=== PATIENT | female | born 1955 | race Caucasian/White ===

== ENCOUNTER 2017-10-15 06:26 | Day surgery (SDC) | payer MEDICAID ==
[2017-10-12 10:21] LABS: ADD MAN DIFF? NO
[2017-10-12 10:27] LABS: WHITE BLOOD COUNT 6.6 10^3/ul (4.8-10.8)
[2017-10-12 10:27] LABS: BASOPHILS % 0.6 % (0.0-2.0); EOSINOPHILS % 0.3 % (0.0-7.0); HEMATOCRIT 37.1 % (37.0-47.0); HEMOGLOBIN 12.4 g/dl (12.0-16.0); LYMPHOCYTES # 2.1 10^3/ul (0.8-2.9); LYMPHOCYTES % 31.3 % (15.0-51.0); MEAN CORPUSCULAR HEMOGLOBIN 29.2 pg (29.0-33.0); MEAN CORPUSCULAR HGB CONC 33.4 g/dl (32.0-37.0); MEAN CORPUSCULAR VOLUME 87.5 fl (82.0-101.0); MEAN PLATELET VOLUME 10.3 fl (7.4-10.4); MONOCYTE # 0.5 10^3/ul (0.3-0.9); MONOCYTES % 7.8 % (0.0-11.0); NEUTROPHIL # 3.9 10^3/ul (1.6-7.5); NEUTROPHILS % 59.8 % (39.0-77.0); PLATELET COUNT 193 10^3/UL (140-415); RED BLOOD COUNT 4.24 10^6/ul (4.20-5.40); RED CELL DISTRIBUTION WIDTH 13.5 % (11.5-14.5)
[2017-10-12 10:40] LABS: ALANINE AMINOTRANSFERASE 24 IU/L (13-69); ALBUMIN 4.9 g/dl (3.3-4.9); ALKALINE PHOSPHATASE 62 IU/L (42-121); ANION GAP 20 (8-16); ASPARTATE AMINO TRANSFERASE 24 IU/L (15-46); BILIRUBIN,INDIRECT 0.7 mg/dl (0-1.1); BILIRUBIN,TOTAL 0.7 mg/dl (0.2-1.3); CARBON DIOXIDE 26 mmol/L (21-31); CHLORIDE 105 mmol/L (97-110); GLUCOSE 94 mg/dl (70-220); TOTAL PROTEIN 8.4 g/dl (6.1-8.1)
[2017-10-12 10:42] LABS: BLOOD UREA NITROGEN 16 mg/dl (7-20); CALCIUM 9.4 mg/dl (8.4-10.2); CREATININE 0.58 mg/dl (0.44-1.00); POTASSIUM 4.4 mmol/L (3.5-5.1); SODIUM 147 mmol/L (135-144)
[2017-10-12 10:47] LABS: INR 0.94; PROTIME 12.7 Sec (11.9-14.9)
[2017-10-12 10:48] LABS: PARTIAL THROMBOPLASTIN TIME 31.5 Sec (25.0-35.0)
[2017-10-15] MEDS ORDERED: CEFAZOLIN 1 GM/50 ML (PMX) 50 ML IVPB (11:30)
[2017-10-15] MEDS ORDERED: SOD CHLORIDE 0.9% 1,000 ML IV (11:30)
[2017-10-15] MEDS ORDERED: MIDAZOLAM 1 MG/ML 2 ML INJ (12:52)
[2017-10-15] MEDS ORDERED: GLYCOPYRROLATE 0.4 MG INJ (12:52)
[2017-10-15] MEDS ORDERED: PROPOFOL 20 ML (12:52)
[2017-10-15] MEDS ORDERED: CEFAZOLIN 1 GM INJ (12:52)
[2017-10-15] MEDS ORDERED: FENTAnyl 50 MCG/ML VIAL ×2 (12:52→14:17)
[2017-10-15] MEDS ORDERED: ROCURONIUM 50 MG INJ (12:52)
[2017-10-15] MEDS ORDERED: NEOSTIGMINE 3 MG/3 ML SYRINGE (12:52)
[2017-10-15] MEDS ORDERED: DEXAMETHASONE 4 MG/ML 1 ML INJ (12:53)
[2017-10-15] MEDS ORDERED: ONDANSETRON 4 MG INJ (12:53)
[2017-10-15] MEDS ORDERED: LABETALOL HCL 20MG INJ IV (14:30)
[2017-10-15] MEDS ORDERED: IPRATROPIUM (NEB) 0.5 MG/2.5 ML AMP HHN (14:30)
[2017-10-15] MEDS: METHYLENE BLUE 1% 10 ML INJ (14:30)
[2017-10-15] MEDS ORDERED: HYDROmorphONE (0.2 MG/ML) 10ML SYG IV ×3 (14:30)
[2017-10-15] MEDS ORDERED: MIDAZOLAM 1 MG/ML 2 ML INJ IV (14:30)
[2017-10-15] MEDS ORDERED: DIPHENHYDRAMINE 50 MG INJ IV (14:30)
[2017-10-15] MEDS ORDERED: ALBUTEROL 0.083% (NEB) 2.5 MG/3 ML AMP HHN (14:30)
[2017-10-15] MEDS ORDERED: OXYCODONE/ACETAMINOPHEN (5/325) TAB PO ×2 (14:30)
[2017-10-15] MEDS ORDERED: hydrALAzine 20 MG INJ IV (14:30)
[2017-10-15] MEDS ORDERED: MEPERIDINE 25 MG INJ IV (14:30)
[2017-10-15] MEDS ORDERED: EPHEDrine SULFATE 50 MG/5 ML SYG IV (14:30)
[2017-10-15] MEDS ORDERED: TRIMETHOBENZAMIDE 100 MG/ML VIAL IM (14:30)
[2017-10-15] MEDS ORDERED: FENTAnyl 50 MCG/ML VIAL IV ×2 (14:30)
[2017-10-15] MEDS ORDERED: SUGAMMADEX SODIUM 200 MG/2 ML VIAL IV (15:11)
[2017-10-15] MEDS: FENTAnyl 50 MCG/ML VIAL IV ×4 (15:38→16:10)
[2017-10-15] MEDS: ONDANSETRON 4 MG INJ IV (15:39)
[2017-10-15] MEDS: HYDROCODONE/APAP (7.5/325) TAB PO (17:02)
== END 2017-10-15 18:12 | disposition home or self-care (01) ==
LOC: SDS 06:26
DX: C50.911 Malignant neoplasm of unspecified site of right female breast (principal)
CPT/HCPCS: 19301; 71045; 80053; 85025; 85610; 85730; 88307; 88309; 93005